=== PATIENT | female | born 1965 | race Caucasian/White ===

== ENCOUNTER 2017-10-27 20:02 | Emergency (ER) | payer OTHER ==
[~2017-10-27] VITALS: Ht 154.9 cm; Wt 98.9 kg
[2017-10-27 20:03] VITALS: BP 169/97
== END 2017-10-27 21:38 | disposition home or self-care (01) ==
LOC: ED 21:30
DX: J02.8 Acute pharyngitis due to other specified organisms (principal); E11.9 Type 2 diabetes mellitus without complications
CPT/HCPCS: 82962; 87081; 87880; 99284

== ENCOUNTER → 2017-11-22 | Outpatient (CLI) | payer OTHER | END | disposition home or self-care (01) | LOC: CFH 14:53 | PROVIDERS: ATTEND Nurse Practitioner Family | DX: M79.641 Pain in right hand (principal); M79.642 Pain in left hand ==

== ENCOUNTER → 2018-01-20 | Outpatient (CLI) | payer OTHER | END | disposition home or self-care (01) | LOC: CFH 15:37 | PROVIDERS: ATTEND Registered Nurse | DX: D48.5 Neoplasm of uncertain behavior of skin (principal); B35.3 Tinea pedis; L82.1 Other seborrheic keratosis; L30.9 Dermatitis, unspecified; R22.1 Localized swelling, mass and lump, neck | CPT/HCPCS: 76536 ==

== ENCOUNTER → 2018-03-28 | Outpatient (CLI) | payer OTHER | END | disposition home or self-care (01) | LOC: CFH 12:22 | PROVIDERS: ATTEND Nurse Practitioner Family | DX: Z12.31 Encounter for screening mammogram for malignant neoplasm of breast (principal) | CPT/HCPCS: 77063; 77067 ==

== ENCOUNTER → 2019-09-11 | Outpatient (CLI) | payer OTHER | END | disposition home or self-care (01) | LOC: CFH 06:48 | PROVIDERS: ATTEND Internal Medicine Cardiovascular Disease | DX: I35.8 Other nonrheumatic aortic valve disorders (principal); I25.89 Other forms of chronic ischemic heart disease | CPT/HCPCS: 78452; 93017; 93306; A9502 ==

== ENCOUNTER 2019-09-20 09:31 | Day surgery (SDC) | payer OTHER ==
[~2019-09-20] VITALS: Ht 152.4 cm; Wt 100.0 kg
[2019-09-20] MEDS ORDERED: SODIUM CHLORIDE 0.9% 1,000 ML IV SCH (09:56)
[2019-09-20 10:04] VITALS: BP 148/90
[2019-09-20] MEDS ORDERED: METF500T17 PO (10:19)
[2019-09-20] MEDS ORDERED: LISI5TAB7 PO (10:19)
[2019-09-20] MEDS ORDERED: BETA15CR3 TP (10:19)
[2019-09-20] MEDS ORDERED: SUVO15TA PO (10:19)
[2019-09-20] MEDS ORDERED: ATOR40TA PO (10:19)
[2019-09-20] MEDS ORDERED: ASPI-496 PO (10:19)
[2019-09-20] MEDS ORDERED: ALPR0.254 PO (10:19)
[2019-09-20] MEDS ORDERED: CETI-158 PO (10:19)
[2019-09-20] MEDS ORDERED: CARV3.1212 PO (10:19)
[2019-09-20] MEDS ORDERED: VALA500T8 PO (10:19)
[2019-09-20] MEDS ORDERED: MAGN71.5 PO (10:23)
[2019-09-20] MEDS ORDERED: AZEL30CR TP (10:23)
[2019-09-20] MEDS ORDERED: METR45CR2 TP (10:24)
[2019-09-20] MEDS ORDERED: ALBU18HF INH (10:25)
[2019-09-20 10:45] LABS: BASOPHILS # (AUTO) 0.04 x10^3/uL (0-0.1); BASOPHILS % (AUTO) 1 % (0-1); EOSINOPHILS # (AUTO) 0.12 x10^3/uL (0-0.4); EOSINOPHILS % (AUTO) 2 % (1-7); LYMPHOCYTES # (AUTO) 2.17 x10^3/uL (1-3.4); LYMPHOCYTES % (AUTO) 29 % (22-44); MD NO; MEAN CORPUSCULAR HEMOGLOBIN 29.6 pg (27.0-34.8); MEAN CORPUSCULAR HGB CONC 33.3 g/dL (32.4-35.8); MEAN CORPUSCULAR VOLUME 88.9 fL (80-100); MEAN PLATELET VOLUME 7.8 fL (7.4-10.4); MONOCYTES # (AUTO) 0.45 x10^3/uL (0.2-0.8); MONOCYTES % (AUTO) 6 % (2-9); NEUTROPHILS # (AUTO) 4.79 x10^3/uL (1.8-6.8); NEUTROPHILS % (AUTO) 63 % (42-75); PLATELET COUNT 412 x10^3/uL (130-400); RED CELL DISTRIBUTION WIDTH 13.6 % (9.6-15.2)
[2019-09-20 10:53] LABS: ANION GAP 6 mmol/L (5-15); CALCIUM 9.3 mg/dL (8.5-10.1); CHLORIDE 110 mmol/L (98-107)
[2019-09-20] MEDS ORDERED: MIDAZOLAM 1 MG/ML, 5ML ONE (11:48)
[2019-09-20] MEDS ORDERED: FENTANYL PF 100 MCG/2ML ONE (11:48)
[2019-09-20] MEDS ORDERED: LIDOCAINE 2%, 20ML ONE (11:48)
== END 2019-09-20 13:07 | disposition home or self-care (01) ==
LOC: CACL 09:31
PROVIDERS: ATTEND Internal Medicine Cardiovascular Disease
DX: R94.39 Abnormal result of other cardiovascular function study (principal); I20.8 Other forms of angina pectoris; I10 Essential (primary) hypertension; E11.9 Type 2 diabetes mellitus without complications; E78.2 Mixed hyperlipidemia; E66.9 Obesity, unspecified; Z68.41 Body mass index [BMI] 40.0-44.9, adult; Z79.82 Long term (current) use of aspirin; Z79.84 Long term (current) use of oral hypoglycemic drugs; Z79.899 Other long term (current) drug therapy; Z88.2 Allergy status to sulfonamides; Z88.5 Allergy status to narcotic agent; Z91.048 Other nonmedicinal substance allergy status; Z90.49 Acquired absence of other specified parts of digestive tract; Z90.710 Acquired absence of both cervix and uterus; Z98.890 Other specified postprocedural states; Z82.49 Family history of ischemic heart disease and other diseases of the circulatory system; Z83.6 Family history of other diseases of the respiratory system
CPT/HCPCS: 36415; 80048; 85025; 93458; 99156; C1760; C1769; C1894; J2250; J3010; Q9967